=== PATIENT | male | born 1990 | race Caucasian/White ===

== ENCOUNTER 2020-12-22 12:30 | Outpatient (CLI) | payer OTHER | END 2020-12-22 12:31 | disposition home or self-care (01) | LOC: NM 12:30 | PROVIDERS: ATTEND Physician Assistant Medical | DX: R10.11 Right upper quadrant pain (principal) | CPT/HCPCS: 78227; A9537 ==

== ENCOUNTER 2020-12-23 14:51 | Outpatient (CLI) | payer OTHER ==
[2020-12-23 17:36] LABS: #Basophils 0.1 10x3/uL (0.0-0.2); #Eosinphils 0.1 10x3/uL (0.0-0.5); #Monocytes 0.5 10x3/uL (0.0-1.1); #Neutrophils 3.6 10x3/uL (1.5-8.4); %Basophils 0.9 % (0.0-2.0); %Eosinophils 1.5 % (0.0-6.0); %Lymphocytes 37.4 % (18.0-47.0); %Monocytes 7.4 % (0.0-10.0); %Neutrophils 52.5 % (40.0-75.0); Mean Corpuscular HGB CONC 34.2 g/dL (32.0-36.0); Mean Corpuscular Hemoglobin 27.6 pg (27.0-33.0); Mean Corpuscular Volume 80.8 fl (81.2-95.1); Mean Platelet Volume 11.1 fl (7.4-10.4); Platelet Count 218 10x3/uL (150-450); RBC Distribution Width 12.4 % (11.5-14.5); Red Blood Cell (RBC) Count 5.43 10x6/uL (4.32-5.72); White Blood Cell (WBC) Count 6.8 10x3/uL (3.5-10.5)
[2020-12-23 17:44] LABS: ALT (SGPT) 22 U/L (8-55); AST (SGOT) 13 U/L (5-34); Albumin 4.5 g/dL (3.5-5.0); Alkaline Phosphatase 69 U/L (40-110); Anion Gap 15 mmol/L (10-20); BUN (Urea Nitrogen) 12 mg/dL (8.9-20.6); Bilirubin, Direct 0.1 mg/dL (0.1-0.3); Bilirubin, Total 0.4 mg/dL (0.2-1.2); Calc. Creatinine Clearance 0 mL/min (70-130); Calcium 9.3 mg/dL (7.8-10.44); Carbon Dioxide 26 mmol/L (22-29); Chloride 102 mmol/L (98-107); Glucose 86 mg/dL (70-105); Potassium 3.9 mmol/L (3.5-5.1); Protein, Total 7.5 g/dL (6.0-8.3); Sodium 139 mmol/L (136-145)
[2020-12-24 01:52] LABS: SARS-CoV-2 PCR by NAA Not Detected (NotDetected)
== END 2020-12-23 14:52 | disposition home or self-care (01) ==
LOC: LABBT 14:51
PROVIDERS: ATTEND Physician Assistant
DX: Z01.818 Encounter for other preprocedural examination (principal); K81.1 Chronic cholecystitis; Z20.822 Contact with and (suspected) exposure to COVID-19
CPT/HCPCS: 80053; 80076; 85025; 87635; U0003; U0005

== ENCOUNTER 2020-12-27 08:46 | Day surgery (SDC) | payer OTHER ==
[2020-12-27] MEDS ORDERED: Lidocaine 1% w/Epinephrine 1:100K 20 ML VIAL ONE (09:28)
[2020-12-27] MEDS ORDERED: Bupivacaine 0.25% HCL 30 ML VIAL ONE (09:28)
[2020-12-27] MEDS ORDERED: Lidocaine 2% Jelly 5 ML TUBE ONE (09:31)
[2020-12-27] MEDS ORDERED: Fentanyl 100 MCG/2 ML VIAL ONE ×3 (09:31→11:23)
[2020-12-27] MEDS ORDERED: Midazolam HCl 2 mg/2 ml Vial ONE (09:37)
[2020-12-27] MEDS ORDERED: cefOXitin Sodium/Dextrose 2 GM/50 ML BAG ONE (09:37)
[2020-12-27] MEDS ORDERED: Rocuronium Bromide 10 MG/ML (10ML VIAL) ONE (09:52)
[2020-12-27] MEDS ORDERED: Lidocaine 1% PF 5 ML VIAL ONE (09:52)
[2020-12-27] MEDS ORDERED: Ketorolac Tromethamine 30 MG/ML VIAL ONE (09:52)
[2020-12-27] MEDS ORDERED: PROPOFOL 200 MG/20 ML VIAL ONE (09:52)
[2020-12-27] MEDS ORDERED: Dexamethasone 20 MG/5 ML VIAL ONE (09:52)
[2020-12-27] MEDS ORDERED: Glycopyrrolate 0.2 MG/ML 5 ML SYRINGE ONE (09:52)
[2020-12-27] MEDS ORDERED: Ondansetron PF 4 MG/2 ML Vial ONE (09:52)
[2020-12-27] MEDS ORDERED: Meperidine HCl/PF 25 MG/ML VIAL ONE (11:27)
[2020-12-27] MEDS ORDERED: HYDROcodone/Acetaminophen 5/325 mg Tablet ONE (12:17)
== END 2020-12-27 13:55 | disposition home or self-care (01) ==
LOC: SDC 08:46
PROVIDERS: ATTEND Surgery
PROC: 0FT44ZZ Resection of Gallbladder, Percutaneous Endoscopic Approach (ICD-10-PCS; principal; 2020-12-27)
DX: K80.10 Calculus of gallbladder with chronic cholecystitis without obstruction (principal); K82.8 Other specified diseases of gallbladder; K42.9 Umbilical hernia without obstruction or gangrene; F17.200 Nicotine dependence, unspecified, uncomplicated
CPT/HCPCS: 88304; J0694; J1100; J1885; J2175; J2250; J2405; J2704; J3010; S0020

== ENCOUNTER 2021-06-27 19:00 | Outpatient (CLI) | payer OTHER | END 2021-06-27 19:01 | disposition home or self-care (01) | LOC: SLEEPLAB 19:00 | PROVIDERS: ATTEND Physician Assistant | DX: G47.33 Obstructive sleep apnea (adult) (pediatric) (principal); I51.9 Heart disease, unspecified; R00.2 Palpitations; R06.83 Snoring; G47.00 Insomnia, unspecified; G47.10 Hypersomnia, unspecified; I47.1 Supraventricular tachycardia; I49.3 Ventricular premature depolarization; I49.1 Atrial premature depolarization | CPT/HCPCS: 95810 ==

== ENCOUNTER 2024-03-12 01:02 | Observation (INO) | payer BC, SELFPAY ==
[2024-03-12 02:40] LABS: #Basophils 0.07 10x3/uL (0.0-0.2); %Eosinophils 2.2 % (0.0-10.0); %Lymphocytes 43.8 % (21.0-51.0); %Monocytes 6.2 % (0.0-10.0); %Neutrophils 46.5 % (42.0-75.0); Hematocrit 44.9 % (42.0-52.0); Hemoglobin 15.1 g/dL (14.0-18.0); Mean Corpuscular HGB CONC 33.6 g/dL (32.0-36.0); Mean Corpuscular Hemoglobin 27.7 pg (27.0-31.0); Mean Corpuscular Volume 82.4 fL (78.0-98.0); Mean Platelet Volume 10.7 fL (7.4-10.4); Platelet Count 212 10x3/uL (130-400); RBC Distribution Width 12.6 % (11.5-14.5); Red Blood Cell (RBC) Count 5.45 mill/uL (4.70-6.10)
[2024-03-12 02:55] LABS: ALT (SGPT) 20 U/L (8-55); AST (SGOT) 13 U/L (5-34); Albumin 4.1 g/dL (3.5-5.0); Alkaline Phosphatase 70 U/L (40-110); Anion Gap 12 mmol/L (10-20); BUN (Urea Nitrogen) 15 mg/dL (8.9-20.6); Bilirubin, Total 0.3 mg/dL (0.2-1.2); Calc. Creatinine Clearance 0 mL/min (70-130); Calcium 9.5 mg/dL (7.8-10.44); Carbon Dioxide 23 mmol/L (22-29); Chloride 109 mmol/L (98-107); Estimated GFR 94; Globulin 3.1 g/dL (2.4-3.5); Glucose 98 mg/dL (70-105); Magnesium 2.2 mg/dL (1.6-2.6); Potassium 4.3 mmol/L (3.5-5.1); Protein, Total 7.2 g/dL (6.0-8.3); Sodium 140 mmol/L (136-145)
[2024-03-12 02:59] LABS: Troponin I Less than 0.010 ng/mL (< 0.028)
[2024-03-12] MEDS ORDERED: Ondansetron PF 4 MG/2 ML Vial IVP PRN (04:15)
[2024-03-12] MEDS ORDERED: Acetaminophen 325 MG TAB PO PRN (04:15)
[2024-03-12] MEDS ORDERED: Ondansetron ODT 4 MG TAB SL PRN (04:15)
[2024-03-12 04:49] VITALS: BMI 30.1
[2024-03-12 06:42] LABS: Troponin I Less than 0.010 ng/mL (< 0.028)
[2024-03-12] MEDS ORDERED: Loperamide HCl 2 MG CAP PO PRN (08:52)
[2024-03-12 12:15] LABS: Troponin I Less than 0.010 ng/mL (< 0.028)
[2024-03-12 16:38] VITALS: BP 117/86; TEMP 98.2
== END 2024-03-12 16:48 | disposition home or self-care (01) ==
LOC: ERS 01:02 → ERHOLD 03:57
PROVIDERS: ADMIT Student in an Organized Health Care Education/Training Program; ATTEND Student in an Organized Health Care Education/Training Program
DX: R07.9 Chest pain, unspecified (principal); I47.10 Supraventricular tachycardia, unspecified; I49.3 Ventricular premature depolarization; R53.83 Other fatigue; R19.7 Diarrhea, unspecified; I49.1 Atrial premature depolarization; Z90.49 Acquired absence of other specified parts of digestive tract; Z98.890 Other specified postprocedural states; Z88.1 Allergy status to other antibiotic agents
CPT/HCPCS: 36415; 71045; 80053; 83735; 84484; 85025; 93005; G0378